=== PATIENT | male | born 1970 | race Caucasian/White ===

== ENCOUNTER → 2018-08-28 | Outpatient (CLI) | payer BC, SELFPAY ==
[2018-08-28 08:08] LABS: Hematocrit 41.7 % (40-54); Hemoglobin 14.4 g/dl (13.0-16.5); Mean Corp Hgb Conc 34.5 g/gl (32-36); Mean Corpuscular Hgb 30.7 pg (27.0-32.0); Mean Corpuscular Volume 88.9 fL (80-94); Mean Platelet Vol. 10.8 fl (6.2-12.0); Platelet Count 255 K/mm3 (150-450); RBC Distribution Width CV 13.8 % (11.6-14.6); RBC Distribution Width SD 44.3 fl (35.1-43.9); Red Blood Count 4.69 M/mm3 (4.6-6.2); White Blood Count 6.8 K/mm3 (4.4-11.0)
[2018-08-28 08:09] LABS: Scan Indicated on CBC? Y/N NO
[2018-08-28 08:44] LABS: AST(SGOT) 21 U/L (15-37); Alanine Aminotransfer ALT/SGPT 53 U/L (16-61); Albumin, Serum 3.6 g/dL (3.2-5.0); Alkaline Phosphatase 78 U/L (45-117); Anion Gap 7 (5-15); BUN 17 mg/dL (7-18); BUN/Creat Ratio 16.2 RATIO (10-20); Calcium,Total 8.7 mg/dL (8.5-10.1); Chloride 106 mmol/L (98-107); Cholesterol 184 mg/dL (200); Creatinine, Serum 1.05 mg/dL (0.70-1.30); EST Glomerular Filtration Rate 80 mL/min (>60); Est Glom Filt Rate - Afr Amer 97 mL/min (>60); Globulin 3.6 g/dL (2.2-4.2); Glucose 112 mg/dL (74-106); High Density Lipoprotein 38 mg/dL; Potassium 4.1 mmol/L (3.5-5.1); Protein, Total 7.2 g/dL (6.4-8.2); Sodium Level 141 mmol/L (136-145); Triglycerides 114 mg/dL; Very Low Density Lipoprotein 23 mg/dL (5-40)
== END | disposition home or self-care (01) ==
PROVIDERS: Family Provider Nurse Practitioner Family; PCP Nurse Practitioner Family; Referring Provider Nurse Practitioner Family; Visit Provider Nurse Practitioner Family
DX: I10 Essential (primary) hypertension (principal); Z13.220 Encounter for screening for lipoid disorders; E66.9 Obesity, unspecified
CPT/HCPCS: 36415; 80053; 80061; 85027

== ENCOUNTER → 2022-11-06 | Outpatient (CLI) | payer OTHER, BC, SELFPAY ==
--- NOTE | 2022-11-06 11:13 | ECHOD_ITS ---
Reason For Study: Murmur-New Procedure This was a 2D Doppler, Color Flow transthoracic echocardiogram. The study was technically difficult. Contrast injection was performed. Exam performed in department. Left Ventricle Mildly dilated left ventricle. The estimated ejection fraction is 55-60 %. Normal diastology for age. No regional wall motion abnormalities noted. Right Ventricle Normal RV size. Normal systolic function. Atria The left atrium is mildly enlarged. Normal right atrium. No doppler evidence for ASD. Bubble contrast study negative for right to left interatrial shunt. Mitral Valve There is no mitral valve stenosis. Trivial mitral valve insufficiency. Tricuspid Valve There is no tricuspid stenosis. Trivial tricuspid valve insufficiency. Pulmonary artery systolic pressure is 25 mmHg. Aortic Valve Mild diffuse aortic valve thickening. Appears to be trileaflet. There is no aortic stenosis. Severe (4+) aortic valve insufficiency. Pulmonic Valve There is no pulmonic valvular stenosis. Trivial pulmonic valve insufficiency. Great Vessels Mild to moderately dilated aortic root. Pericardium/Pleural No pericardial effusion. Medication 22 gauge I.V. with prn adaptor inserted into right arm. Diluted definity 1ml given slow IV push to enhance endocardial definition. Performed a rapid injection of agitated mix of 9 cc saline and 1cc air to assess for atrial septal defect. MMode/2D Measurements & Calculations LVIDd: 6.3 cm IVSd: 0.99 cm LVOT diam: 2.6 cm LVIDs: 4.7 cm LVPWd: 0.84 cm RVDd: 4.7 cm FS: 26.4 % LVOT area: 5.5 cm2 Ao root diam: 4.8 cm LAV(MOD-bp): 98.8 ml LVAd ap4: 52.1 cm2 LA dimension: 4.1 cm LAV(MOD-bp) Indexed: 43.2 ml/m2 LVLd ap4: 9.7 cm LAV(MOD-sp2): 103.0 ml EDV(MOD-sp4): 222.8 ml LAV(MOD-sp4): 80.2 ml EDV(sp4-el): 238.2 ml LVAs ap4: 32.7 cm2 LVLs ap4: 8.0 cm ESV(MOD-sp4): 108.5 ml ESV(sp4-el): 114.1 ml EF(MOD-sp4): 51.3 % EF(sp4-el): 52.1 % SV(MOD-sp4): 114.3 ml SV(sp4-el): 124.1 ml Aortic Valve Planimetry: 3.8 cm2 LA A4 area: 25.0 cm2 RA A4 area: 22.6 cm2 TAPSE: 2.5 cm Time Measurements MV dec time: 0.20 sec Doppler Measurements & Calculations MV E max michael: 49.7 cm/sec Lat Peak E' Michael: 8.3 cm/sec Med Peak E' Michael: 9.0 cm/sec MV A max michael: 45.1 cm/sec E/E' lat: 6.0 E/E' med: 5.5 MV E/A: 1.1 MV dec slope: 248.3 cm/sec2 Ao V2 max: 174.7 cm/sec AI max michael: 497.2 cm/sec Ao max P.2 mmHg AI max P.4 mmHg Ao V2 mean: 107.3 cm/sec AI dec slope: 235.7 cm/sec2 Ao mean P.5 mmHg AI P1/2t: 617.8 msec Ao V2 VTI: 38.4 cm AV (velocity ratio): 0.67 SHERRY(I,D): 3.7 cm2 SHERRY(V,D): 3.3 cm2 LV V1 max: 105.9 cm/sec MR max michael: 545.8 cm/sec SV(LVOT): 140.2 ml LV V1 max P.5 mmHg MR max P.2 mmHg LV V1 mean P.2 mmHg LV V1 mean: 68.7 cm/sec LV V1 VTI: 25.6 cm PA V2 max: 72.2 cm/sec PI end-d michael: 105.1 cm/sec TR max michael: 227.7 cm/sec TR max P.7 mmHg ECHO/Echo Complete W/ Contrast Interpretation Summary Mildly dilated left ventricle. The estimated ejection fraction is 55-60 %. Trivial mitral valve insufficiency. Severe (4+) aortic valve insufficiency. Mild to moderately dilated aortic root. Consider MYLA to evaluate severity of aortic regurgitation and aortic valve morp hology if clinically indicated. Ordering Physician: Concha Slater Referring Physician: Concha Slater Performed By: Alejandro Baum RCS
== END | disposition home or self-care (01) ==
PROVIDERS: PCP Nurse Practitioner Family; Referring Provider Nurse Practitioner Family; Visit Provider Nurse Practitioner Family
DX: R01.1 Cardiac murmur, unspecified (principal)
CPT/HCPCS: 93306; Q9957; A4216; C8929

== ENCOUNTER 2023-05-05 09:56 | Outpatient (CLI) | payer OTHER, SELFPAY ==
--- NOTE | 2023-05-05 09:59 | ECHOTEE_ITS ---
Reason For Study: Bicuspid AB Medication MYLA probe 6VT-D (SN [id number]) passed with minimal difficulty. No complications were noted. Cetacaine Topical [place] given X3 orally. Versed 3 mg given slow IVP. Fentanyl 50 mcg given slow IVP. Performed a rapid injection of agitated mix of 9 cc saline and 1cc air to assess for atrial septal defect. Left Ventricle Normal LV size. Left ventricular systolic function is normal. The estimated ejection fraction is 60 %. No regional wall motion abnormalities noted. Right Ventricle Normal RV size. Normal systolic function. The right ventricular wall motion is normal. Atria Bubble contrast study negative for right to left interatrial shunt. Normal left atrium. No thrombus is detected in the left atrial appendage. Normal right atrium. Mitral Valve Normal mitral valve. Tricuspid Valve Normal tricuspid valve. Aortic Valve Bicuspid aortic valve. Mild-Moderate (1-2+) eccentric aortic valve insufficiency. Pulmonic Valve Normal pulmonic valve. Vessels Normal aortic root. Normal arch. The pulmonary artery is normal size. Pericardium No pericardial effusion. ECHO/Echo Transesophageal (MYLA) Interpretation Summary Normal LV size. Left ventricular systolic function is normal. The estimated ejection fraction is 60 %. Bubble contrast study negative for right to left interatrial shunt. Mild-Moderate (1-2+) eccentric aortic valve insufficiency. Bicuspid aortic valve. Ordering Physician: Yosvany Yeager Referring Physician: Concha Slater Performed By: Alejandro Baum RCS
--- OUTSIDE RECORDS SUMMARY | 2023-05-05 10:33 | XMS RPT_ITS | CCD ---
Author Name Unknown Address [facility] [facility] [address] [place] [address] Organization [facility] Care Team Providers Care Arabic Translator Name Role Phone CLAUDIA KIRKPATRICK Primary Care Unavailable KAYA, CLAUDIA Admitting Unavailable KAYA, CLAUDIA Attending Unavailable KAYA, CLAUDIA Consulting Unavailable PROVIDER, UNKNOWN Consulting Unavailable KAYA, CLAUDIA Admitting Unavailable KAYA, CLAUDIA Attending Unavailable KAYA, CLAUDIA Consulting Unavailable KAYA, CLAUDIA Primary Care Unavailable PROVIDER, UNKNOWN Consulting Unavailable Problems Active Problems Problem Classification Problem Date Documented Da te Episodic/Chronic Diabetes mellitus without complication (1 source) Impaired fasting glucose; Translations: [Impaired fasting glucose] Onset: 10-19-2022 Episodic Essential hypertension (1 source) Essential (primary) hypertension; Translations: [Essential (primary) hypertension] Onset: 06-08-2022 Chronic Other nutritional; endocrine; and metabolic disorders (1 source) Obesity, unspecified; Translations: [Obesity, unspecified] Onset: 06-08-2022 Chronic Past or Other Problems Problem Classification Problem Date Documented Da te Episodic/Chronic Other screening for suspected conditions (not mental disorders or infectious disease) (2 sources) Encounter for screening for lipoid disorders; Translations: [Encounter for screening for malignant neoplasm of prostate] Onset: 06-08-2022 Episodic Results Test Name Value Interpretation Reference Range Facil ity Encounters Encounter Date Encounter Type Care Provider Facility Start: 10-19-2022 End: 10-19-2022 ambulatory CLAUDIA [facility] Start: 06-08-2022 End: 06-08-2022 ambulatory CLAUDIA [facility] Start: 06-08-2022 Encounter for genera l adult medical examination without abnormal findings CLAUDIA [facility] Procedures Date Procedure Procedure Detail Performing Clinician Start: 06-08-2022 PSA screening CLAUDIA VILLARREAL IS Payers Date Payer Category Payer Unknown [id number] Private Health Insurance [id number] Unknown [id number] Summary Purpose Family History No Family History Records FoundNo Family History Records Found Advance Directives No Advanced Directives Records FoundNo Advanced Directives Records Found Additional Source Comments (unrecognized sect ion and content) No Status Records FoundNo Status Records Found INFORMATION SOURCE (unrecogn ized section and content) DATE CREATED AUTHOR AUTHOR'S ORGANIZ ATION 10/23/2022 [facility] FOR RECORDS PERTAINING TO PATIENTS WHO ARE OR HAVE BEEN ENROLLED IN A CHEMICAL DEPENDENCY/SUBSTANCEABUSE PROGRAM, SOME INFORMATION MAY BE OMITTED. This clinical summary was aggregated from multiple sources. Caution should be exercised in using it in the provision of clinical care. This summary normalizes information from multiple sources, and as a consequence, information in this document may materially change the coding, format and clinical context of patient data. In addition, data may be omitted in some cases. CLINICAL DECISIONS SHOULD BE BASED ON THE PRIMARY CLINICAL RECORDS. [facility]. provides no warranty or guarantee of the accuracy or completeness of information in this document.
== END 2023-05-05 12:20 | disposition home or self-care (01) ==
LOC: CVS 09:58
PROVIDERS: PCP Nurse Practitioner Family; Referring Provider Internal Medicine Cardiovascular Disease; Visit Provider Internal Medicine Cardiovascular Disease
DX: R01.1 Cardiac murmur, unspecified (principal); I38 Endocarditis, valve unspecified; Q23.1 Congenital insufficiency of aortic valve
CPT/HCPCS: 93312; 93320; 93325; J7040; A4216

== ENCOUNTER 2024-04-30 06:56 | Day surgery (SDC) | payer OTHER, SELFPAY ==
--- NOTE | 2024-04-27 16:44 | PAT.ANESEVAL ---
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 When Was Last Pacemaker Check QUESTION #4 FULL TEXT: You/Your Family Experience fever (hyperthermia) with Anesthesia Last Oral Intake Last Oral intake: Last Oral Intake NPO since Meds taken in AM with sips of water? Meds patient instructed to take am of surgery PONV PONV - manager corporate strategy: PONV - manager corporate strategy Female No 04/27/24 15:39 HX of Motion Sickness No 04/27/24 15:39 HX of N/V After Surgery No 04/27/24 15:39 Non-Smoker Yes 04/27/24 15:39 Duration of Surgery greater No 04/27/24 15:39 than 60 minutes Number of Risk Factors 1 04/27/24 15:39 PONV Score Low Risk 04/27/24 15:39 Height & Weight Height & Weight: Anesthesia: Height & Weight Height 6 ft 04/01/24 13:01 Respiratory Assessment Respiratory Assessment - manager corporate strategy: Respiratory Tract Infection Hx - manager corporate strategy Hx Respiratory Tract Infection No 04/27/24 15:39 STOP Sleep Apnea STOP Sleep Apnea - manager corporate strategy: STOP Sleep Apnea - manager corporate strategy Hx Hypertension Yes: controlled with med 04/27/24 15:39 Hx Sleep Apnea Yes: mild 04/27/24 15:39 CPAP Yes: uncompliant 04/27/24 15:39 BIPAP No 04/27/24 15:39 Do you snore loudly (louder than talking or can be heard Do you often feel tired/ fatigued/ sleepy during daytime? Has anyone observed you stop breathing during sleep? STOP Results Positive 04/27/24 15:39 QUESTION #5 FULL TEXT : Do you snore loudly (louder than talking or can be heard through closed doors)? 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 Specify any problems Hx of Preganancy in last 3 N/A 04/27/24 15:39 Months Nurse Filling Out Transfusion NBUCHER 04/27/24 15:39 & Questions: Date: 04/27/24 04/27/24 15:39 Time: 15:41 04/27/24 15:39 Patient unable to answer at this time (ie. confused, unrespo /Reproduction History /Reproductive History - manager corporate strategy: /Reproductive Hx- manager corporate strategy Hx Now No 04/27/24 15:39 Gestational Age (in weeks): EDC: Hx Hx Para Hx Section SAB No 04/27/24 15:39 PFSH Medical History (Updated 04/27/24 @ 15:44 by Odilia García) Wears glasses Non-smoker CPAP (continuous positive airway pressure) dependence Sleep apnea History of echocardiogram Cardiology follow-up encounter Positive colorectal cancer screening using Cologuard test Constipation Heart murmur Lab test negative for COVID-19 virus URI (upper respiratory infection) HTN (hypertension) Home Medications ?Medication ?Instructions ?Recorded ?Last Taken ?Type losartan 50 mg tablet 50 mg PO DAILY 02/13/23 Unknown History tadalafil 10 mg tablet 10 mg PO DAILY 03/26/23 Unknown History magnesium oxide 400 mg PO QDAY 01/16/24 Unknown History semaglutide (weight loss) 0.25 0.25 mg subcut MO 04/27/24 Unknown History mg/0.5 mL subcutaneous pen injector Allergy/AdvReac Type Severity Reaction Status Date / Time Penicillins (PCN) Allergy Intermediate Rash Verified 04/27/24 15:37 lisinopril AdvReac Mild Other Verified 04/27/24 15:37 Family History Father Heart disease Mother Hypertension Diabetes Surgical History History of vasectomy History of Achilles tendon repair History of fusion of cervical spine Social History Smoking Status: Never smoker alcohol intake: current Alcohol type: beer substance use type: does not use caffeine: Yes Type: carbonated beverages Number of servings: 1 and coffee Number of servings: 1 Audit: Pertinent Findings Pertinent Findings EKG Perinent findings: January 16, 2024. Sinus bradycardia at 57 bpm.. Occasional ectopic ventricular beat. Echo (EF%) pertinent findings: May 05, 2023. Ejection fraction 60%. No aortic stenosis noted. Mild to moderate eccentric aortic valve insufficiency. Consult pertinent findings: January 16, 2024. Anton MUNGUIA. 1. Bicuspid aortic valve seen by imaging-aortic valve insufficiency is thought to be moderate. Denies exertional or associated symptoms at this time. Continue to monitor. Symptoms of progressive aortic valve disease reviewed with the patient. Repeat testing as needed. 2. Aortic root dilation-4.6 cm per last cardiac MRI on May 26, 2023. Blood pressure control reviewed with the patient. 3. [id number] Recommendation Anesthesia Recommendation Anesthesia recommendation: OPTIMIZED for anesthesia
[2024-04-30] VITALS (8 sets, daily range): BP systolic 99–123; BP diastolic 66–79; PULSE 66–96; RESP 16–18; TEMP 36.1–37; O2SAT 94–100; BMI 29.8
--- NOTE | 2024-04-30 07:35 | PRE.ANES_ITS ---
ASA Classification* ASA Classification ASA Classification: 2 Assessment & Plan Anesthesia* Anesthesia Assessment Anesthesia Assessment: Discussed sedation and/or anesthesia options, risks, benefits, and alternatives with patient/parents/legal guardian/POA. Questions invited. The patient/parents/legal guardian/POA seems to understand and agrees to proceed with anesthesia plan. Reviewed the physical assessment, medical history, allergy history and patient home medications list prior to surgery/procedure/anesthetic and documented any changes. Performed airway and anesthesia risk assessments. Anesthesia Type Anesthesia Type: MAC History Source History Obtained from:: Patient, Chart and Significant Other (Spouse) Anesthesia Focused Assessment* Temperature: 97 F Pulse Rate: 69 Blood Pressure: 123/79 Respiratory Rate: 16 Pulse Ox: 100 Oxygen Delivery Method: Room Air Airway Assessment Mouth opens: >3 cm Mallampati Score: II Teeth Condition: Intact Neck Range of motion (ROM): Full ROM Focused Labs Anesthesia Preop lab: CBC WBC 6.8 K/mm3 (4.4-11.0) 08/28/18 06:08/28/18 RBC 4.69 M/mm3 (4.6-6.2) 08/28/18 06:08/28/18 Hgb 14.4 g/dl (13.0-16.5) 08/28/18 06:08/28/18 Hct 41.7 % (40-54) 08/28/18 06:08/28/18 Plt Count 255 K/mm3 (150-450) 08/28/18 06:33 08/28/18 CHEMISTRY Potassium 4.1 mmol/L (3.5-5.1) 08/28/18 06:33 08/28/18 Sodium 141 mmol/L (136-145) 08/28/18 06:33 08/28/18 BUN 17 mg/dL (7-18) 08/28/18 06:08/28/18 Creatinine 1.05 mg/dL (0.70-1.30) 08/28/18 06:33 08/28/18 Glucose 112 mg/dL (74-106) H 08/28/18 06:33 08/28/18 COAG Pre-Assessment Diagnosis/Proposed Procedure Planned Operative Procedure(s): cscope Anesthesia History 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 When Was Last Pacemaker Check QUESTION #4 FULL TEXT: You/Your Family Experience fever (hyperthermia) with Anesthesia Last Oral Intake Last Oral intake: Last Oral Intake NPO since 04:45 04/30/24 07:12 Meds taken in AM with sips of Yes 04/30/24 07:12 water? 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 - warehouse team leader Female No 04/27/24 15:39 HX of Motion Sickness No 04/27/24 15:39 HX of N/V After Surgery No 04/27/24 15:39 Non-Smoker Yes 04/27/24 15:39 Duration of Surgery greater No 04/27/24 15:39 than 60 minutes Number of Risk Factors 1 04/27/24 15:39 PONV Score Low Risk 04/27/24 15:39 Height & Weight Height & Weight: Anesthesia: Height & Weight Height 6 ft 04/30/24 07:12 Weight: 99.79 kg 04/30/24 07:12 Body Mass Index (BMI) 29.8 04/30/24 07:12 Respiratory Assessment Respiratory Assessment - warehouse team leader: Respiratory Tract Infection Hx - warehouse team leader Hx Respiratory Tract Infection No 04/27/24 15:39 STOP Sleep Apnea STOP Sleep Apnea - warehouse team leader: STOP Sleep Apnea - warehouse team leader Hx Hypertension Yes: controlled with med 04/27/24 15:39 Hx Sleep Apnea Yes: mild 04/27/24 15:39 CPAP Yes: uncompliant 04/27/24 15:39 BIPAP No 04/27/24 15:39 Do you snore loudly (louder than talking or can be heard Do you often feel tired/ fatigued/ sleepy during daytime? Has anyone observed you stop breathing during sleep? STOP Results Positive 04/27/24 15:39 QUESTION #5 FULL TEXT : Do you snore loudly (louder than talking or can be heard through closed doors)? 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 Specify any problems Hx of Preganancy in last 3 N/A 04/27/24 15:39 Months Nurse Filling Out Transfusion NBUCHER 04/27/24 15:39 & Questions: Date: 04/27/24 04/27/24 15:39 Time: 15:41 04/27/24 15:39 Patient unable to answer at this time (ie. confused, unrespo /Reproduction History /Reproductive History - warehouse team leader: /Reproductive Hx- warehouse team leader Hx Now No 04/27/24 15:39 Gestational Age (in weeks): EDC: Hx Hx Para Hx Section SAB No 04/27/24 15:39 PFS Medical History (Updated 04/27/24 @ 15:44 by Odilia García) Wears glasses Non-smoker CPAP (continuous positive airway pressure) dependence Sleep apnea History of echocardiogram Cardiology follow-up encounter Positive colorectal cancer screening using Cologuard test Constipation Heart murmur Lab test negative for COVID-19 virus URI (upper respiratory infection) HTN (hypertension) Home Medications ?Medication ?Instructions ?Recorded ?Last Taken ?Type losartan 50 mg tablet 50 mg PO DAILY 02/13/2304/11 History tadalafil 10 mg tablet 10 mg PO DAILY 03/26/23 Unkn own History magnesium oxide 400 mg PO QDAY 01/16/24 Unkn own History semaglutide (weight loss) 0.25 0.25 mg subcut MO 04/27 Unknown History mg/0.5 mL subcutaneous pen injector Allergy/AdvReac Type Severity Reaction Status Date / Time Penicillins (PCN) Allergy Intermediate Rash Verified 04/30/24 07:10 lisinopril AdvReac Mild Other Verified 04/30/24 07:10 Family History Father Heart disease Mother Hypertension Diabetes Surgical History History of vasectomy History of Achilles tendon repair History of fusion of cervical spine Social History Smoking Status: Never smoker alcohol intake: current Alcohol type: beer substance use type: does not use caffeine: Yes Type: carbonated beverages Number of servings: 1 and coffee Number of servings: 1 Review of Systems (Anesthesia) ROS Narrative System reviewed and no additional complaints, except as documented.
--- NOTE | 2024-04-30 07:57 | HP.PCM_ITS ---
History and Physical Date of Admission: 04/30/24 Intake Vital Signs 01/15/2411:31 04/01/2512:01 Height 6 ft 6 ft Weight: 229 lb 231 lb BMI 31.0 31.3 BP 123/73 H 109/68 Blood Pressure Location Lt brachial Rt brachial Position Sitting Sitting Respiration 16 18 Pulse 54 L 63 Pulse Source NIBP Monitor Temp 97.2 F L Temp Source Temporal Pulse Oximetry (%) 100 99 Oxygen Delivery Method room air room air Intake Visit Reasons: POSITIVE COLOGUARD Chief Complaint: positive cologuard Is patient in pain?: No Allergies lisinopril Adverse Reaction (Mild, Verified 04/01/24 13:02) Other Medications ?Medication ?Instructions ?Recorded ?Confirmed ?Type losartan 50 mg tablet 50 mg PO DAILY 02/13/23 04/01/24 History tadalafil 10 mg tablet 10 mg PO DAILY 03/26/23 04/01/24 History magnesium oxide 400 mg PO QDAY 01/16/24 04/01/24 History PFS Medical History (Updated 04/01/24 @ 13:01 by Margaret Penaloza LPN) Positive colorectal cancer screening using Cologuard test Constipation Heart murmur Lab test negative for COVID-19 virus URI (upper respiratory infection) HTN (hypertension) Surgical History History of vasectomy History of Achilles tendon repair History of fusion of cervical spine Family History Father Heart diseaseMother Hypertension Diabetes Social History Smoking Status: Never smoker alcohol intake: current Alcohol type: beer substance use type: does not use caffeine: Yes Type: carbonated beverages Number of servings: 1 and coffee Number of servings: 1 HPI HPI HPI: Patient is a 54-year-old male here with positive Cologuard. Patient has never had a colonoscopy in the past. He denies abdominal pain or blood in stool. He denies family history of colon cancer. ROS General General: No weight change, appetite, fatigue, colon cancer, breast cancer or weakness HEENT HEENT: No difficulty swallowing, eye injury, eye surgery, swollen glands or hoarseness Endo Endocrine: No thyroid disease, diabetes mellitus, thyroid cancer, Hair loss, heat intolerance or cold intolerance Skin Skin: No rash or changing moles Musc Musculoskeletal: No back problems, arthritis, rheumatoid arthritis, gout or joint pain Cardio Cardiovascular: Yes murmur and high blood pressure; No pacemaker, heart disease, atrial fibrillation, heart attack, heart stent, palpitations, shortness of breat with exertion or chest pain Psych Psychiatric: No depression, anxiety or hearing voices Resp Respiratory: No shortness of breath, Yes sleep apnea, No cough, No COPD, No asthma, No emphysema and No wheezing Gastro Gastrointestinal: No abdominal pain, No nausea or vomiting, No diarrhea, Yes constipation, No blood in stool, No acid reflux, No hemorrhoids, No ulcers, No gallbladder problem and No black,tarry stools Greg Hematologic: No blood thinners, No blood disorders, No bleeding, No anemia and No blood clots Neuro Neurologic: No numbness, No tingling and No weakness Exam Const General: cooperative Orientation: alert and oriented x3 HENMT Head: normal to inspection Neck Neck: normal visual inspection and full ROM Chest Chest palpation & inspection: normal inspection of the chest Resp Effort & Inspection: normal respiratory effort Auscultation: clear to auscultation bilaterally Cardio Rate: regular rate Rhythm: regular rhythm GI Inspection: non-distended Palpation: soft and nontender Skin General: no rashes or lesions noted Neuro General: patient alert and patient oriented x3 Extrem General: full ROM Psych Appearance: grossly normal Mental Status: mental status grossly normal Assessment and Plan Assessment and Plan (1) Positive colorectal cancer screening using Cologuard test: Status: Acute Plan: I explained endoscopy in detail to the patient. I explained the risks including but not limited to stroke or heart attack with anesthesia, perforation of the GI tract, bleeding, infection. I explained that any of these could necessitate further emergency surgery. The patient understands and all questions were answered sufficiently. The patient wishes to proceed with procedure. Vlad Eid MD Pager: [facility] [address] [place] [address], [address] [place] [address] Office: I have examined the patient and the H&P has been reviewed. There are no clinical changes since date of exam.
--- NOTE | 2024-04-30 08:33 | OP.CCLET_ITS ---
04/30/2024 Concha Slater Re : Colonoscopy procedure for Courtney Betancourtr Bryon This procedure was performed on Tuesday, April 30, 2024. My impressions and recommendations are as follows: Impressions : - The entire examined colon is normal on direct and retroflexion views. - No specimens collected. Recommendations : - Discharge patient to home. - Resume previous diet. - Continue present medications. - Repeat colonoscopy in 10 years for screening purposes. My findings are described in the full procedure note, which is enclosed. If I can be of further assistance, please feel free to contact me at Doctor phone number(s): , Work: . Sincerely, Vlad Eid MD 04/30/2024 8:33:06 AM This report has been signed electronically.
--- NOTE | 2024-04-30 08:33 | OP.COLON_ITS ---
Patient Name: Courtney Blair Procedure Date: 04/30/2024 8:04 AM Date of : 1970 Age: 54 Procedure: Colonoscopy Indications: Positive Cologuard test Providers: Vlad Eid MD Medicines: Propofol per Anesthesia Patient Profile: This is a 54 year old male. Refer to note in patient chart for documentation of history and physical. Last Colonoscopy: none. The patient's first colonoscopy is today. Complications: No immediate complications. Procedure: Pre-Anesthesia Assessment: - Prior to the procedure, a History and Physical was performed, and patient medications and allergies were reviewed. The patient's tolerance of previous anesthesia was also reviewed. The risks and benefits of the procedure and the sedation options and risks were discussed with the patient. All questions were answered, and informed consent was obtained. Prior Anticoagulants: The patient has taken no anticoagulant or antiplatelet agents. ASA Grade Assessment: I - A normal, healthy patient. After reviewing the risks and benefits, the patient was deemed in satisfactory condition to undergo the procedure. After I obtained informed consent, the scope was passed under direct vision. Throughout the procedure, the patient's blood pressure, pulse, and oxygen saturations were monitored continuously. The colonoscope was introduced through the anus and advanced to the cecum, identified by appendiceal orifice and ileocecal valve. The colonoscopy was performed without difficulty. The patient tolerated the procedure well. The quality of the bowel preparation was good. The ileocecal valve, appendiceal orifice, and rectum were photographed. Scope In: 8:15:29 AM Scope Withdrawal Time 0 hours 6 minutes 16 seconds Scope Out: 8:27:56 AM Total Procedure Duration Time 0 hours 12 minutes 27 seconds Findings: The entire examined colon appeared normal on direct and retroflexion views. Impression: - The entire examined colon is normal on direct and retroflexion views. - No specimens collected. Recommendation: - Discharge patient to home. - Resume previous diet. - Continue present medications. - Repeat colonoscopy in 10 years for screening purposes. Procedure Code(s): --- Professional --- 90866, Colonoscopy, flexible; diagnostic, including collection of specimen(s) by brushing or washing, when performed (separate procedure) Diagnosis Code(s): --- Professional --- R19.5, Other fecal abnormalities CPT copyright 2021 [employer]. All rights reserved. The codes documented in this report are preliminary and upon centrifugal supervisor review may be revised to meet current compliance requirements. Vlad Eid MD 04/30/2024 8:33:06 AM This report has been signed electronically. Number of Addenda: 0 Note Initiated On: 04/30/2024 8:04 AM
--- NOTE | 2024-04-30 08:34 | PCM.POST.ANE ---
Anesthesia: Postop Eval I Current Vital Signs Temperature: 97 F Pulse Rate: 96 Blood Pressure: 111/68 Respiratory Rate: 18 Pulse Ox: 98 Oxygen Delivery Method: Room Air Assessment Airway patent: Yes Spontaneous unlabored respirations: Yes Mental status: Awake and Calm nausea: No Vomiting: No Anesthesia Complication: No Fluid Hydration Crystalloid volume administer (ml): 20 Total IV fluid infused: 20 Progress Note Anesthesia document: Postop Eval 1 completed: Yes
--- NOTE | 2024-04-30 08:39 | POSTOPAN2_ITS ---
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.MDOT Spontaneous unlabored Yes 04/30/24 08:35 ORDER CHECKER PACKER PROCESSER.MDOT respirations Mental status Awake,Calm 04/30/24 08:35 ORDER CHECKER PACKER PROCESSER.MDOT nausea No 04/30/24 08:35 ORDER CHECKER PACKER PROCESSER.MDOT Vomiting No 04/30/24 08:35 ORDER CHECKER PACKER PROCESSER.MDOT Anesthesia Postop Eval I: Fluid Summary Crystalloid volume administer 20 04/30/24 08:35 ORDER CHECKER PACKER PROCESSER.MDOT (ml) Colloids volume administered ( ml) Blood Product volume administered (ml) Total IV fluid infused 20 04/30/24 08:35 ORDER CHECKER PACKER PROCESSER.MDOT Anesthesia Postop Eval I: Summary Notes Anesthesia Complication No 04/30/24 08:35 ORDER CHECKER PACKER PROCESSER.MDOT Anesthesia Complication Comment: Post-operative progress note Anesthesia: Postop Eval II Evaluation Mental status: Awake and Calm Pain Level: 0 nausea: No Vomiting: No Complications Anesthesia Complication: No
--- NOTE | 2024-04-30 08:39 | PCM.POSTANE2 ---
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.MDOT Spontaneous unlabored Yes 04/30/24 08:35 ZIPPER SEWING MACHINE OPERATOR.MDOT respirations Mental status Awake,Calm 04/30/24 08:35 ZIPPER SEWING MACHINE OPERATOR.MDOT nausea No 04/30/24 08:35 ZIPPER SEWING MACHINE OPERATOR.MDOT Vomiting No 04/30/24 08:35 ZIPPER SEWING MACHINE OPERATOR.MDOT Anesthesia Postop Eval I: Fluid Summary Crystalloid volume administer 20 04/30/24 08:35 ZIPPER SEWING MACHINE OPERATOR.MDOT (ml) Colloids volume administered ( ml) Blood Product volume administered (ml) Total IV fluid infused 20 04/30/24 08:35 ZIPPER SEWING MACHINE OPERATOR.MDOT Anesthesia Postop Eval I: Summary Notes Anesthesia Complication No 04/30/24 08:35 ZIPPER SEWING MACHINE OPERATOR.MDOT Anesthesia Complication Comment: Post-operative progress note Anesthesia: Postop Eval II Evaluation Mental status: Awake and Calm Pain Level: 0 nausea: No Vomiting: No Complications Anesthesia Complication: No
== END 2024-04-30 09:17 | disposition home or self-care (01) ==
LOC: EN 06:57 → AC 06:58
PROVIDERS: PCP Nurse Practitioner Family; Referring Provider Nurse Practitioner Family; Visit Provider Surgery
PROC: 0DJD8ZZ Inspection of Lower Intestinal Tract, Via Natural or Artificial Opening Endoscopic (ICD-10-PCS; CPT 45378; principal; 2024-04-30 07:55)
DX: R19.5 Other fecal abnormalities (principal); I10 Essential (primary) hypertension; Z79.899 Other long term (current) drug therapy
CPT/HCPCS: 45378; A4216